=== PATIENT | male | born 1995 | race African-American/Black ===

== ENCOUNTER 2016-06-24 13:41 | Emergency (ER) | payer OTHER ==
[~2016-06-24] VITALS: Ht 167.6 cm; Wt 63.5 kg
[2016-06-24 14:11] VITALS: BP 117/62
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
[2016-06-24] MEDS ORDERED: IOHEXOL 300 MG/ML 75 ML VIAL IV ONE (15:00)
[2016-06-24] MEDS ORDERED: CONTRAST GIVEN MC PRN (15:00)
--- NOTE | 2016-06-24 15:26 | RAD ---
CT of the chest, abdomen and pelvis with contrast, 06/24/2016: History: [facility] Multidetector CT imaging was performed following an IV bolus injection of iodinated contrast material. The thoracic aorta is unremarkable. There is no evidence of mediastinal hemorrhage. The lungs are clear. There is no evidence of pleural fluid or pneumothorax. There is no evidence of a hepatic or splenic laceration. The gallbladder is unremarkable. The pancreas cannot be clearly from unopacified bowel but shows no specific abnormality. No renal abnormality is detected. The urinary bladder shows no abnormality. The bowel loops are not distended. No free air is present in the abdomen. There is a trace amount of free fluid in the deep pelvis. IMPRESSION: 1. Trace amount of free fluid in the deep pelvis. 2. Otherwise no acute abnormality is identified in the chest, abdomen or pelvis. PQRS Compliance Statement: One or more of the following individualized dose reduction techniques were utilized for this examination: 1. Automated exposure control 2. Adjustment of the mA and/or kV according to patient size 3. Use of iterative reconstruction technique
[2016-06-24] MEDS ORDERED: CYCL10TA2 PO (15:40)
[2016-06-27 09:44] LABS: POTASSIUM ISTAT 3.3 mmol/L (3.5-5.0)
== END 2016-06-24 15:46 | disposition home or self-care (01) ==
LOC: ER 15:19
DX: M54.9 Dorsalgia, unspecified (principal); R07.89 Other chest pain; R10.9 Unspecified abdominal pain; F17.210 Nicotine dependence, cigarettes, uncomplicated; V43.53XA Car driver injured in collision with pick-up truck in traffic accident, initial encounter; Y93.89 Activity, other specified; Y99.8 Other external cause status; Y92.488 Other paved roadways as the place of occurrence of the external cause
CPT/HCPCS: 71260; 74177; 80047; 99284; Q9967